=== PATIENT | male | born 2000 | race Caucasian/White ===

== ENCOUNTER 2018-08-16 18:04 | Emergency (ER) | payer SELFPAY ==
[~2018-08-16] VITALS: Ht 182.9 cm; Wt 79.5 kg
[2018-08-16 19:01] LABS: INFLUENZA A AMPLIFICATION NEGATIVE (NEGATIVE); INFLUENZA B AMPLIFICATION NEGATIVE (NEGATIVE)
[2018-08-16] MEDS ORDERED: AMOX500C PO (19:21)
[2018-08-16] MEDS ORDERED: CLAR5TAB7 PO (19:21)
[2018-08-16 19:26] VITALS: BP 102/56
== END 2018-08-16 19:30 | disposition home or self-care (01) ==
LOC: M ED 18:04
DX: J01.90 Acute sinusitis, unspecified (principal); Z72.0 Tobacco use; Z91.040 Latex allergy status; Z91.89 Other specified personal risk factors, not elsewhere classified